=== PATIENT | female | born 1965 | race Caucasian/White ===

== ENCOUNTER → 2025-05-31 08:10 | Outpatient (REF) | payer OTHER, SELFPAY | LOC: RAD 08:10 | PROVIDERS: ATTENDING PHYSICIAN Student in an Organized Health Care Education/Training Program | DX: M79.643 Pain in unspecified hand (principal); M25.529 Pain in unspecified elbow; M79.673 Pain in unspecified foot; M25.569 Pain in unspecified knee | CPT/HCPCS: 73070; 73130; 73560; 73565; 73630; 76882 ==